=== PATIENT | female | born 1990 | race Caucasian/White ===

== ENCOUNTER 2016-07-13 18:43 | Emergency (ER) | payer OTHER ==
[2016-07-13 18:47] VITALS: BP 137/90; PULSE 130; TEMP 102.6; BMI 36.9
--- NOTE | 2016-07-13 19:36 | PDOC ---
History of Present Illness - General Chief Complaint: Cold Symptoms Stated Complaint: COLD SYMPTOMS Time Seen by Provider: 07/13/16 19:30 History Source: Patient, Parent(s) Exam Limitations: No Limitations - History of Present Illness Initial Comments: 07/13/16 19:31 Timing/Duration: reports: getting worse Severity: reports: mild, moderate Associated Symptoms: reports: fever/chills, nasal congestion Past History - Travel Traveled outside of the country in the last 30 days: No Close contact w/someone who was outside of country & ill: No - Past Medical History Allergies/Adverse Reactions: Allergies Allergy/AdvReac Type Severity Reaction Status Date / Time ibuprofen Allergy Intermediate hives/swell Verified 07/13/16 18:47 ing Home Medications: Ambulatory Orders NK [No Known Home Medication] 11/17/14 Other medical history: NONE - Immunization History Immunization Up to Date: Yes - Psycho/Social/Smoking Cessation Hx Anxiety: No Suicidal Ideation: No Smoking Status: No Smoking History: Never smoked Have you smoked in the past 12 months: No Number of Cigarettes Smoked Daily: 0 Hx Alcohol Use: No Drug/Substance Use Hx: No Substance Use Type: None Respiratory Specific PMHX - Complaint Specific PMHX Bronchitis: No Pneumonia: No Review of Systems - Review of Systems Able to Perform ROS?: Yes Is the patient limited Niuean proficient: Yes Constitutional: Yes: Symptoms Reported, See HPI, Fever, Malaise HEENTM: Yes: Symptoms Reported, See HPI, Throat Pain, Throat Swelling. No: Nose Congestion Respiratory: Yes: Symptoms reported, See HPI. No: Cough : No: Symptoms Reported Musculoskeletal: Yes: Symptoms Reported, See HPI, Muscle Weakness Integumentary: Yes: See HPI. No: Symptoms Reported, Bruising Neurological: Yes: Symptoms reported All Other Systems: Reviewed and Negative *Physical Exam - Vital Signs Last Vital Signs Temp Pulse Resp BP Pulse Ox 102.6 F H 130 H 20 137/90 100 07/13/16 18:44 07/13/16 18:44 07/13/16 18:44 07/13/16 18:44 07/13/16 18:44 - Physical Exam General Appearance: Yes: Nourished, Appropriately Dressed, Apparent Distress HEENT: positive: LOIS, Normal ENT Inspection, TMs Normal, Pharyngeal Erythema ( positive exudate, beefy red and enlarged tonsils, airway is patent), Tonsillar Erythema, Nasal Congestion, Rhinorrhea. negative: Pharynx Normal Neck: positive: Supple, Lymphadenopathy (R), Lymphadenopathy (L). negative: Tender Respiratory/Chest: positive: Lungs Clear, Normal Breath Sounds Cardiovascular: positive: Regular Rate Gastrointestinal/Abdominal: positive: Soft. 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 *DC/Admit/Observation/Transfer Diagnosis at time of Disposition: Pharyngitis, acute Qualifiers: Pharyngitis/tonsillitis etiology: unspecified etiology Qualified Code(s): J02.9 - Acute pharyngitis, unspecified - Discharge Dispostion Disposition: HOME Condition at time of disposition: Stable Admit: No - Referrals Referrals: Ailyn Ogden [Primary Care Provider] - - Patient Instructions Additional Instructions: Rest, drink lots of fluids: Teas, water, soups Eat cold things: Ice cream, ice pops, ice chips Saltwater gargles Steamy showers/seem to face break up mucus Avoid contact with others until fevers and pain resolved Lots of handwashing and good hygiene, this is contagious You have been treated with Bicillin LA 1.2 million units injection which is a one-time treatment for strep pharyngitis. You will not need to take any further antibiotics. Tylenol or Motrin for fever and pain Followup with private physician in one to 2 days as needed if not improving Return to emergency department for worsened symptoms, fevers, dehydration - Post Discharge Activity Work/School Note: Back to Work
[2016-07-13] MEDS ORDERED: PENICILLIN G BENZATHINE 1,200,000 UNIT/2 ML PFS IM ONE (19:46)
[2016-07-13] MEDS ORDERED: PENICILLIN G BENZATHINE 2,400,000 UNIT/4 ML PFS ONE (19:49)
== END 2016-07-13 20:40 | disposition home or self-care (01) ==
LOC: JERFT 18:43 → JER 18:43 → JERFT 20:40
DX: J02.9 Acute pharyngitis, unspecified (principal)
CPT/HCPCS: 87070; 87077; 87430; 99281-25

== ENCOUNTER 2016-09-03 16:50 | Emergency (ER) | payer OTHER ==
[2016-09-03 16:59] VITALS: BP 117/69; PULSE 100; TEMP 98; BMI 34.0
[2016-09-03] MEDS ORDERED: DEXAMETHASONE 4 MG TABLET (FP) PO STA (18:27)
--- NOTE | 2016-09-03 18:28 | PDOC ---
History of Present Illness - General Chief Complaint: Sore Throat Stated Complaint: COLD SYMPTOMS Time Seen by Provider: 09/03/16 17:40 History Source: Patient Exam Limitations: No Limitations - History of Present Illness Initial Comments: 09/03/16 18:24 26 yr female with sore throat for 3 days muffled voice. Pt states she gets strep often. no fever or chills. Past History - Past Medical History Allergies/Adverse Reactions: Allergies Allergy/AdvReac Type Severity Reaction Status Date / Time ibuprofen Allergy Intermediate hives/swell Verified 09/03/16 16:59 ing Home Medications: Ambulatory Orders Penicillin V Potassium [Pen Vee K -] 500 mg PO BID #21 tablet 09/03/16 Other medical history: denies - Immunization History Immunization Up to Date: Yes - Psycho/Social/Smoking Cessation Hx Anxiety: No Suicidal Ideation: No Smoking Status: No Smoking History: Never smoked Have you smoked in the past 12 months: No Number of Cigarettes Smoked Daily: 0 Information on smoking cessation initiated: No Hx Alcohol Use: No Drug/Substance Use Hx: No Substance Use Type: None *Physical Exam - Vital Signs Last Vital Signs Temp Pulse Resp BP Pulse Ox 98 F 100 H 18 117/69 100 09/03/16 16:57 09/03/16 16:57 09/03/16 16:57 09/03/16 16:57 09/03/16 16:57 - Physical Exam General Appearance: Yes: Nourished, Appropriately Dressed HEENT: positive: EOMI, LOIS, TMs Normal, Pharyngeal Erythema, Tonsillar Exudate , Tonsillar Erythema Neck: positive: Supple. negative: Tender Respiratory/Chest: positive: Lungs Clear, Normal Breath Sounds. negative: Chest Tender Cardiovascular: positive: Regular Rhythm, Regular Rate Gastrointestinal/Abdominal: positive: Normal Bowel Sounds, Soft Musculoskeletal: positive: Normal Inspection Extremity: positive: Normal Capillary Refill, Normal Inspection, Normal Range of Motion Integumentary: positive: Normal Color, Dry, Warm Neurologic: positive: Fully Oriented, Alert, Normal Mood/Affect, Normal Response , Motor Strength 5/5 Medical Decision Making - Medical Decision Making 09/03/16 21:52 cc: sore throat muffled voice history of strep no trismus, no difficulty speaking or swallowing will check for strep *DC/Admit/Observation/Transfer Diagnosis at time of Disposition: Acute streptococcal pharyngitis Pharyngitis, acute Qualifiers: Pharyngitis/tonsillitis etiology: unspecified etiology Qualified Code(s): J02.9 - Acute pharyngitis, unspecified - Discharge Dispostion Disposition: HOME Condition at time of disposition: Good - Prescriptions Prescriptions: Penicillin V Potassium [Pen Vee K -] 500 mg PO BID #21 tablet - Referrals Referrals: Ailyn Ogden [Primary Care Provider] - Agapito Rodas MD [Staff Physician] - - Patient Instructions Additional Instructions: follow with ENT for further care gargle with warm salt water 4-5 times a day tylenol for fever or pain you have been given a dose of steroid to help with swelling and pain
[2016-09-03] MEDS ORDERED: DEXAMETHASONE SOD PHOSPHATE 10 MG/1 ML VIAL ONE (18:30)
== END 2016-09-03 18:36 | disposition home or self-care (01) ==
LOC: JERFT 16:50
DX: J02.0 Streptococcal pharyngitis (principal); B95.0 Streptococcus, group A, as the cause of diseases classified elsewhere
CPT/HCPCS: 87070; 87430; 99281-25

== ENCOUNTER 2017-04-13 11:02 | Emergency (ER) | payer OTHER ==
[2017-04-13 11:11] VITALS: BP 136/81; PULSE 89; TEMP 97.9; BMI 39.9
[2017-04-13] MEDS ORDERED: MAG HYDROX/AL HYDROX/SIMETH 30 ML UNIT-DOSE CUP PO ONE (12:01)
[2017-04-13] MEDS ORDERED: FAMOTIDINE 20 MG/50 ML IVPB 50 ML IVPB ONE (12:01)
[2017-04-13] MEDS ORDERED: MAG HYDROX/AL HYDROX/SIMETH 30 ML UNIT-DOSE CUP ONE (12:09)
[2017-04-13 12:23] LABS: BASOPHIL 0.6 % (0-2.0); EOSINOPHIL 1.3 % (0-4.5); MCH 24.6 pg (25.7-33.7); MCHC 32.2 g/dl (32.0-36.0); MEAN CELL VOLUME 76.5 fl (80-96); NEUTROPHILS 75.1 % (42.8-82.8); PLATELET COUNT 346 K/MM3 (134-434); RDW 14.5 % (11.6-15.6)
--- NOTE | 2017-04-13 12:39 | PDOC ---
History of Present Illness - General Chief Complaint: Chest Pain Stated Complaint: CHEST PAIN Time Seen by Provider: 04/13/17 11:51 History Source: Patient Exam Limitations: No Limitations - History of Present Illness Travel History: No Initial Comments: 04/13/17 12:34 26 yr obese female with epigastric pain for 3 days worse in the morning , comes and goes more constant during the day. pt denies fever, positive nausea. Pt denies arm pain , states the pain radiates to her back , neg diarrhea. Pt has history of GERD after drinking ETOH pt denies drinking ETOH recently . Timing/Duration: reports: constant Quality: reports: fullness Abdominal Pain Onset Location: reports: epigastric Pain Radiation: reports: back Past History - Past Medical History Allergies/Adverse Reactions: Allergies Allergy/AdvReac Type Severity Reaction Status Date / Time ibuprofen Allergy Intermediate hives/swell Verified 04/13/17 11:07 ing Home Medications: Ambulatory Orders NK [No Known Home Medication] 04/13/17 Other medical history: obesity - Family Disease History Family Disease History: Other: Mother (gallbladder disease ) - Reproductive History LMP Normal: Yes Is Patient Now?: No - Immunization History Immunization Up to Date: Yes - Suicide/Smoking/Psychosocial Hx Smoking Status: No Smoking History: Never smoked Have you smoked in the past 12 months: No Number of Cigarettes Smoked Daily: 0 Hx Alcohol Use: No Drug/Substance Use Hx: No Substance Use Type: None Abd/GI Specific PMHX - Complaint Specific PMHX Colitis: No Diverticulitis: No Gall Bladder Disease: No GERD: Yes Hepatitis: No Irritable Bowel Synd (IBS): No Pancreatitis: No GI Ulcer Disease: No Review of Systems - Review of Systems Able to Perform ROS?: Yes Is the patient limited Slovak proficient: No Constitutional: No: Symptoms Reported HEENTM: No: Symptoms Reported Respiratory: No: Symptoms reported Cardiac (ROS): No: Symptoms Reported ABD/GI: Yes: Symptoms Reported, See HPI *Physical Exam - Vital Signs Last Vital Signs Temp Pulse Resp BP Pulse Ox 97.9 F 89 18 136/81 100 04/13/17 11:07 04/13/17 11:07 04/13/17 11:07 04/13/17 11:07 04/13/17 11:07 - Physical Exam General Appearance: Yes: Nourished, Appropriately Dressed, Obese HEENT: positive: EOMI, LOIS, Normal ENT Inspection, TMs Normal, Pharynx Normal Neck: positive: Supple. negative: Tender Respiratory/Chest: positive: Lungs Clear, Normal Breath Sounds. negative: Chest Tender Cardiovascular: positive: Regular Rhythm, Regular Rate Gastrointestinal/Abdominal: positive: Normal Bowel Sounds, Tender (epigastric area reproducable pain ), Soft Musculoskeletal: positive: Normal Inspection Extremity: positive: Normal Capillary Refill, Normal Inspection, Normal Range of Motion ED Treatment Course - LABORATORY CBC & Chemistry Diagram: 04/13/17 11:59 04/13/17 12:00 - ADDITIONAL ORDERS Additional order review: 04/13/17 11:59 RBC 5.02 MCV 76.5 L MCHC 32.2 RDW 14.5 MPV 8.0 Neutrophils % 75.1 Lymphocytes % 17.2 Monocytes % 5.8 Eosinophils % 1.3 Basophils % 0.6 - RADIOLOGY Radiology Studies Ordered: Category Date Time Status ABDOMEN US -LIMITED [US] Stat Ultrasound 04/13/17 11:59 Ordered - Medications Given in the ED: ED Medications Discontinued Medications Generic Name Dose Route Start Last Admin Trade Name Freq PRN Reason Stop Dose Admin Al Hydroxide/Mg Hydroxide 30 ml 04/13/17 12:01 04/13/17 12:09 Mylanta Oral Suspension - PO 04/13/17 12:02 30 ml ONCE ONE Administration Medical Decision Making - Medical Decision Making 04/13/17 12:38 cc: epigastric pain with nausea for 3 days worse in the AM will r/o gallbladder disease , family history of same 04/13/17 13:33 pt improved after maalox and zantac pt is asking to eat labs reviewed US reviewed and pt will follow up as outpatient with surgeon pt agrees with plan of care *DC/Admit/Observation/Transfer Diagnosis at time of Disposition: Gallbladder calculus without cholecystitis Qualifiers: Biliary obstruction: without biliary obstruction Qualified Code(s): K80.20 - Calculus of gallbladder without cholecystitis without obstruction; K80.20 - Calculus of gallbladder without cholecystitis without obstruction - Discharge Dispostion Disposition: HOME Condition at time of disposition: Improved - Referrals Referrals: Ailyn Ogden [Primary Care Provider] - Bipin Wilson MD [Staff Physician] - Bonny Reynoso MD [Staff Physician] - - Patient Instructions Additional Instructions: avoid spicy fatty foods, avoid chocoalte eat a bland diet as this can minimize your pain take maalox as needed(over the counter) and pepcid as directed RETURN if fever, chills vomiting severe pain follow with the surgeon next week call today or tomorrow to make appointment
[2017-04-13] MEDS ORDERED: RANITIDINE HCL 150 MG TABLET (FP) PO ONE (12:47)
[2017-04-13 12:49] LABS: ALBUMIN 3.5 g/dl (3.4-5.0); AMYLASE 38 U/L (25-115); ANION GAP 10 (8-16); CALCIUM 8.6 mg/dL (8.5-10.1); CO2 25 mmol/L (21-32); CREATININE 0.6 mg/dL (0.55-1.02); GLUCOSE,RANDOM 97 mg/dL (74-106); SGOT/AST 9 U/L (15-37)
[2017-04-13] MEDS ORDERED: RANITIDINE HCL 150 MG TABLET (FP) ONE (12:49)
[2017-04-13 12:51] LABS: ALK PHOS 93 U/L (45-117); BILIRUBIN,TOTAL 0.2 mg/dL (0.2-1.0); SGPT/ALT 23 U/L (12-78); TOT PROT 7.8 g/dl (6.4-8.2)
--- NOTE | 2017-04-16 09:10 | EKG ---
Test Reason : Blood Pressure : / mmHG Vent. Rate : 070 BPM Atrial Rate : 070 BPM P-R Int : 160 ms QRS Dur : 092 ms QT Int : 362 ms P-R-T Axes : 049 025 016 degrees QTc Int : 390 ms NORMAL SINUS RHYTHM NORMAL ECG WHEN COMPARED WITH ECG OF 21-AUG-2014 15:05, NO SIGNIFICANT CHANGE WAS FOUND Confirmed by MANGO SHELBY MD ([id number]) on 04/16/2017 9:09:46 AM Referred By: Confirmed By:MANGO SHELBY MD
== END 2017-04-13 13:39 | disposition home or self-care (01) ==
LOC: JERFT 11:02
DX: K80.20 Calculus of gallbladder without cholecystitis without obstruction (principal)
CPT/HCPCS: 36415; 76705-TC; 80053; 82150; 83690; 84703; 85025; 93005; 93010; 99281-25

== ENCOUNTER 2017-04-28 12:00 | Day surgery (SDC) | payer OTHER ==
[2017-04-28 12:48] VITALS: BMI 40.6
--- NOTE | 2017-04-28 14:04 | HP ---
History & Physical Update - History History: No Change - Physical Physical: No Change - Assessment Assessment: No Change - Plan Plan: No Change
[2017-04-28] MEDS ORDERED: SUCCINYLCHOLINE CHLORIDE 200 MG/10 ML VIAL ONE (14:25)
[2017-04-28] MEDS ORDERED: PROPOFOL 20 ML ONE (14:25)
[2017-04-28] MEDS ORDERED: ROCURONIUM BROMIDE 50 MG/5 ML VIAL ONE (14:25)
[2017-04-28] MEDS ORDERED: ceFAZolin SODIUM 1 GM VIAL IVPB ONE (14:45)
[2017-04-28] MEDS ORDERED: ceFAZolin SODIUM 1 GM VIAL ONE ×2 (14:53)
[2017-04-28] MEDS ORDERED: GLYCOPYRROLATE 0.2 MG/1 ML VIAL ONE ×2 (15:41)
[2017-04-28] MEDS ORDERED: NEOSTIGMINE METHYLSULFATE 0.5 MG/ML - 10 ML MDV ONE (15:41)
[2017-04-28] MEDS ORDERED: BUPIVACAINE HCL/PF 0.5% (5MG/ML) 10 ML VIAL IJ ONE (15:46)
--- NOTE | 2017-04-28 16:12 | OP ---
Operative Note - Note: Operative Date: 04/28/17 Pre-Operative Diagnosis: Cholelithiasis, cholecystitis, morbid obesity. Operation: Laparoscopic cholecystectomy , lysis of adhesions. Findings: Large gallbladder with multiple gallstones, extensive omental adhesions all around the gallbladder. Post-Operative Diagnosis: Other (Calculus of gallbladder with cholecystitis and extensive omental adhesions.) Surgeon: Bonny Reynoso Heel Seat Laster: Jennifer Bear Anesthesiologist/ASIC VERIFICATION ENGINEER: Agapito Leary Anesthesia: General Specimens Removed: Gallbladder with calculii. Estimated Blood Loss (mls): 15 Operative Report Dictated: Yes
[2017-04-28] MEDS ORDERED: ONDANSETRON 4 MG/2 ML VIAL IVPUSH PRN (16:18)
[2017-04-28] MEDS ORDERED: oxyCODONE HCL 5 MG TABLET PO PRN (16:18)
[2017-04-28] MEDS ORDERED: PROMETHAZINE HCL 25 MG/1 ML VIAL IVPUSH PRN (16:18)
--- NOTE | 2017-04-28 16:21 | SURG ---
Surgery Nurse Sane Note Nurse Sane: Jennifer Bear PA-C Date of Service: 04/28/17 Diagnosis: cholecystitis, cholelithiasis Procedure: Laprascopic cholecystectomy I was present for the entirety of the operative procedure. For further detail, please refer to operative report. Visit type - Case Type Case Type: Scheduled Admission - Emergency Emergency Visit: No - New patient This patient is new to me today: Yes Date on this admission: 04/28/17
[2017-04-28] MEDS ORDERED: LACTATED RINGERS SOLUTION 1,000 ML IV SCH (16:30)
[2017-04-28 18:15] VITALS: PULSE 90; TEMP 98.9
[2017-04-28 19:31] VITALS: BP 133/80
--- NOTE | 2017-04-28 20:52 | OP ---
DATE OF OPERATION: 04/28/2017 PREOPERATIVE DIAGNOSES: Calculus of the gallbladder with acute and chronic cholecystitis, morbid obesity. POSTOPERATIVE DIAGNOSES: Calculus of the gallbladder with cholecystitis, multiple extensive omental adhesions, and morbid obesity. OPERATIVE PROCEDURE: Laparoscopic cholecystectomy with lysis of adhesions. SURGEON: Claudio Reynoso MD DAIRY MANUFACTURING TECHNOLOGIST: EDIS aWre ANESTHESIA: General anesthesia. ANESTHESIOLOGIST: Agapito Leary MD OPERATIVE DESCRIPTION: This 26-year-old woman was admitted with severe abdominal pain, was found to have calculus of the gallbladder and cholecystitis. She was seen in the office and scheduled for laparoscopic cholecystectomy. She is also morbidly obese. Patient was given general anesthesia. Consent was obtained. Risks, benefits, and complications were discussed with the patient. Patient was brought to the operating room. General anesthesia was given. Abdomen was painted and draped. Timeout was called. An incision was made in the infraumbilical portion of the umbilicus, which was deepened inside the skin, subcutaneous fat, and the linea alba. A 10- to 12- mm laparoscopic trocar of the Naga type was introduced into the abdominal cavity. The abdomen was inflated with carbon dioxide at 6 L per minute with a maximum intra-abdominal pressure of 15 mmHg. A 5-mm laparoscopic camera was introduced into the abdominal cavity. Under direct vision, two 5-mm trocars were inserted in the right upper quadrant of the abdomen, one along the midclavicular line, another around the anterior axillary line. A third 5-mm trocar was inserted in the midline in the subxiphoid area. The fundus of the gallbladder was visualized and grasped with a grasper through the lateral 5-mm port site. The gallbladder was retracted cephalad and laterally. The gallbladder body and infundibulum were covered with extensive omental adhesions. These were carefully from the gallbladder with sharp and blunt dissection, as well as using electrocautery until the infundibulum of the gallbladder was visualized. Once the infundibulum of the gallbladder was visualized, this was grasped with another grasper. The infundibulum was retracted inferiorly and laterally. With sharp and blunt dissection, the cystic duct was isolated circumferentially and then divided between clips. The cystic artery was brought into view, and it was likewise divided between clips. The peritoneal reflection on either side of the gallbladder from the edge of the liver was incised, and the gallbladder dissected out of the gallbladder bed with sharp and blunt dissection all the way to the fundus of the gallbladder. The cholecystectomy was thus accomplished. The hemostasis was satisfactory and controlled during the procedure. An Endo Catch was then introduced through the umbilical port. The camera being switched to the subxiphoid port. The gallbladder was placed in the Endo Catch and retrieved out of the abdominal cavity. The gallbladder was large and had multiple large stones. Specimen was sent to Pathology. The gallbladder fossa was then thoroughly irrigated with normal saline, about 2-3 L. All fluid return was clear. There was no bleeding. The clips were intact. There was no bile leak. The instruments were then withdrawn under direct vision. The linea alba in the midline was approximated with interrupted [id number] 2-0 Vicryl sutures. The repair of the abdomen was adequate. There was no air leaking from the abdominal closure site. Then, 0.5% Marcaine was injected into the wound. Skin was approximated with buried, interrupted 4-0 Monocryl sutures. Dermabond was applied across the skin edges. The patient tolerated the procedure well. Estimated blood loss was less than 15 mL. Sponge count and instrument count was correct. Patient was extubated and sent to the recovery room in satisfactory and stable condition. Faye [id number]
--- NOTE | 2017-05-02 16:29 | PATH ---
Surgical Pathology Report Patient Name: EVA EMMANUEL [facility]. Rec. #: [id number] /Age/Gender: 1990 (Age: 26) / F Account: [id number] Location: [facility] SURGICAL Taken: 04/28/2017 Received: 05/01/2017 Reported: 05/02/2017 Physicians: Claudio Reynoso M.D. Specimen(s) Received GALLBLADDER Clinical History Cholelithiasis, cholecystitis Final Diagnosis GALLBLADDER, LAPAROSCOPIC CHOLECYSTECTOMY: CHOLESTEROLOSIS, MILD CHRONIC CHOLECYSTITIS AND CHOLELITHIASIS. Electronically Signed Clair Herndon M.D. Gross Description Received in formalin, labeled "gallbladder," is a 8.3 x 2.1 x 1.9 cm. gallbladder with a 0.2 cm. in length portion of cystic duct attached. The outer surface is méndez-henry and varies from smooth to shaggy. The lumen contains brown, sludgelike bile as well as abundant yellow, spherical choleliths ranging from 0.1-1.2 cm in greatest dimension. The mucosa is brown with gold cholesterol stippling and focally eroded. The wall of the gallbladder averages 0.1 cm. in thickness. Corn Lab Technician sections are submitted in one cassette. 05/01/201705/01/2017
== END 2017-04-28 19:00 | disposition home or self-care (01) ==
LOC: JASU-SURG 12:00
PROVIDERS: ATTEND Specialist
PROC: 0FT44ZZ Resection of Gallbladder, Percutaneous Endoscopic Approach (ICD-10-PCS; principal; 2017-04-28 12:00)
DX: K80.12 Calculus of gallbladder with acute and chronic cholecystitis without obstruction (principal); E66.01 Morbid (severe) obesity due to excess calories
CPT/HCPCS: 84703; 88304-TC; 94760

== ENCOUNTER 2017-10-23 20:18 | Emergency (ER) | payer OTHER ==
[2017-10-23 20:23] VITALS: BP 116/72; PULSE 87; TEMP 98.5; BMI 37.6
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
== END 2017-10-23 22:34 | disposition home or self-care (01) ==
LOC: JERFT 20:18
PROC: 2W3CX1Z Immobilization of Right Lower Arm using Splint (ICD-10-PCS; principal; 2017-10-23)
DX: S63.501A Unspecified sprain of right wrist, initial encounter (principal); W22.8XXA Striking against or struck by other objects, initial encounter; Y93.89 Activity, other specified; Y92.89 Other specified places as the place of occurrence of the external cause; Y99.8 Other external cause status
CPT/HCPCS: 73110-TC-RT-FY; 73130-TC-RT-FY; 99281-25

== ENCOUNTER 2018-12-05 20:15 | Emergency (ER) | payer BC, OTHER ==
[2018-12-05] MEDS ORDERED: ACETAMINOPHEN 160 MG/5 ML *Children Solution PO ONE (20:46)
[2018-12-05 20:48] VITALS: BP 124/74; PULSE 100; TEMP 98.2; BMI 36.4
--- NOTE | 2018-12-05 20:48 | PDOC ---
Rapid Medical Evaluation Chief Complaint: Sore Throat Time Seen by Provider: 12/05/18 20:40 Medical Evaluation: Allergies Allergy/AdvReac Type Severity Reaction Status Date / Time ibuprofen Allergy Intermediate hives/swell Verified 10/23/17 20:22 ing 12/05/18 20:42 I have performed a brief in-person evaluation of this patient. The patient presents with a chief complaint of: sorethroat pain x 5 days/ seen by PMD yesterday and started on Amoxicillin Pertinent physical exam findings: tonsils grossly enlarged / erythema I have ordered the following: rapid strep The patient will proceed to the ED for further evaluation. 12/05/18 20:48 Discharge Disposition - Diagnosis Pharyngitis - Referrals - Patient Instructions - Post Discharge Activity
[2018-12-05] MEDS ORDERED: DEXAMETHASONE LIQUID 0.5 MG/5 ML 240 ML BULK BOTTLE PO ONE (21:01)
[2018-12-05] MEDS ORDERED: DEXAMETHASONE SOD PHOSPHATE 10 MG/1 ML VIAL ONE (21:01)
--- NOTE | 2018-12-05 21:03 | PDOC ---
History of Present Illness - General Chief Complaint: Sore Throat Stated Complaint: SORE THROAT/FEVER Time Seen by Provider: 12/05/18 20:40 - History of Present Illness Initial Comments: 12/05/18 21:01 28-year-old female currently being treated for strep throat on amoxicillin presents for evaluation of sore throat and intermittent nausea over the last few days Past History - Past Medical History Allergies/Adverse Reactions: Allergies Allergy/AdvReac Type Severity Reaction Status Date / Time ibuprofen Allergy Intermediate hives/swell Verified 12/05/18 20:44 ing Home Medications: Ambulatory Orders NK [No Known Home Medication] 09/03/17 COPD: No - Surgical History Cholecystectomy: Yes - Family Disease History Family Disease History: Other: Mother (gallbladder disease ) - Immunization History Immunization Up to Date: Yes - Suicide/Smoking/Psychosocial Hx Smoking Status: No Smoking History: Never smoked Have you smoked in the past 12 months: No Number of Cigarettes Smoked Daily: 0 Information on smoking cessation initiated: No Hx Alcohol Use: No Drug/Substance Use Hx: No Substance Use Type: Marijuana Review of Systems - Review of Systems Constitutional: Yes: Fever HEENTM: Yes: Throat Pain, Difficulty Swallowing ABD/GI: Yes: Nausea *Physical Exam - Vital Signs Last Vital Signs Temp Pulse Resp BP Pulse Ox 98.2 F 100 H 17 124/74 100 12/05/18 20:42 12/05/18 20:42 12/05/18 20:42 12/05/18 20:42 12/05/18 20:42 - Physical Exam Comments: 12/05/18 21:01 HEAD: NC/AT EYES: Conjuntiva clear Ears: Canals and TM's normal NOSE: No d/c THROAT: Moist mucous membrances, oral pharanx erythemic with exudate, uvula midline NECK: Supple without adenopathy CARDIAC: S1 S2 LUNGS: CTA Full and Equal breath sounds ABDOMEN: Soft NT ND MS: Full ROM in all joints without edema NEUROLOGIC: No gross sensory or motor deficits, NVID SKIN: Normal color and temperature no lesions or rashes ED Treatment Course - Medications Given in the ED: ED Medications Discontinued Medications Generic Name Dose Route Start Last Admin Trade Name Freq PRN Reason Stop Dose Admin Acetaminophen 975 mg 12/05/18 20:46 12/05/18 20:56 Tylenol *Children Solution* - PO 12/05/18 20:47 975 mg ONCE ONE Administration Medical Decision Making - Medical Decision Making 12/05/18 21:01 I will Give the patient a dose of Decadron in the emergency room. She is currently on a course of amoxicillin. I will have her follow-up with ENT as she gets yearly strep infections *DC/Admit/Observation/Transfer Diagnosis at time of Disposition: Strep pharyngitis - Discharge Dispostion Disposition: HOME Condition at time of disposition: Stable Decision to Admit order: No - Referrals Referrals: Ailyn Ogden [Primary Care Provider] - Slava Díaz MD [Staff Physician] - - Patient Instructions Printed Discharge Instructions: Strep Throat, DI for Strep Throat Additional Instructions: Long-acting steroids were given in the emergency room should help with the pain over the next few days. Return to the emergency room for worsening symptoms. Follow-up with ear nose and throat doctor without fail in 1-2 days for further evaluation and treatment options. Warm salt water gargles will also help pain. Continue with Tylenol and Motrin as directed. - Post Discharge Activity
== END 2018-12-05 21:03 | disposition home or self-care (01) ==
LOC: JERFT 20:15
DX: J02.0 Streptococcal pharyngitis (principal)
CPT/HCPCS: 99281-25

== ENCOUNTER 2020-09-21 16:18 | Emergency (ER) | payer BC ==
[2020-09-21 16:29] VITALS: BP 143/87; PULSE 66; TEMP 98; BMI 37.8
[2020-09-21] MEDS ORDERED: morphine CARPU-JECT 4 MG/1 ML DISP.SYRIN IVPUSH ONE (16:52)
[2020-09-21] MEDS ORDERED: SODIUM CHLORIDE 1,000 ML IV STA (16:53)
[2020-09-21] MEDS ORDERED: ONDANSETRON 4 MG/2 ML VIAL IVPUSH ONE (16:55)
[2020-09-21] MEDS ORDERED: ONDANSETRON 4 MG/2 ML VIAL ONE (17:14)
[2020-09-21] MEDS ORDERED: morphine SULFATE 4 MG/ML VIAL ONE (17:14)
[2020-09-21 17:45] LABS: URINE APPEARANCE CLEAR; URINE BILIRUBIN NEGATIVE (NEGATIVE); URINE COLOR YELLOW; URINE KETONE NEGATIVE (NEGATIVE)
[2020-09-21 17:46] LABS: ALBUMIN 3.9 g/dl (3.4-5.0); BILIRUBIN,TOTAL 0.4 mg/dl (0.2-1); CREATININE 0.6 mg/dl (0.55-1.3); POTASSIUM 3.5 mmol/L (3.5-5.1); TOT PROT 7.5 g/dl (6.4-8.2)
[2020-09-21 17:46] LABS: PH,URINE 5.5 (4.5-8); URINE GLUCOSE (UA) NEGATIVE (NEGATIVE); URINE LEUK ESTERASE NEGATIVE (NEGATIVE); URINE NITRITE NEGATIVE (NEGATIVE); URINE PROTEIN NEGATIVE (NEGATIVE); URINE UROBILINOGEN 0.2 (0.2-1.0)
[2020-09-21 17:51] LABS: BASO % 4.3 % (0-2.0); EOS % 1.6 % (0-4.5); HEMATOCRIT 39.5 % (32.4-45.2); HEMOGLOBIN 12.9 GM/dl (10.7-15.3); LYMPH % 12.2 % (8-40); MCH 26.8 pg (25.7-33.7); MCHC 32.7 g/dl (32.0-36.0); MEAN CELL VOLUME 81.9 fl (80-96); MEAN PLT VOLUME 8.6 fl (7.5-11.1); MONO % 7.5 % (3.8-10.2); NEUT % 74.4 % (42.8-82.8); PLATELET COUNT 296 K/MM3 (134-434); RBC 4.82 M/mm3 (3.60-5.2); RDW 13.3 % (11.6-15.6); WHITE BLOOD COUNT 11.2 K/mm3 (4.0-10.8)
[2020-09-21] MEDS ORDERED: ACETAMINOPHEN 1000 MG/100 ML VIAL (NON FORMULARY) IVPB ONE (18:24)
[2020-09-21] MEDS ORDERED: TAMSULOSIN HCL 0.4 MG CAP PO ONE (18:48)
[2020-09-21] MEDS ORDERED: TAMSULOSIN HCL 0.4 MG CAP ONE (19:13)
[2020-09-21] MEDS ORDERED: ACETAMINOPHEN INJECTION 100 ML IVPB ONE (19:13)
== END 2020-09-21 20:18 | disposition home or self-care (01) ==
LOC: FER 16:18
PROC: 3E0337Z Introduction of Electrolytic and Water Balance Substance into Peripheral Vein, Percutaneous Approach (ICD-10-PCS; principal; 2020-09-21)
PROC: 3E033GC Introduction of Other Therapeutic Substance into Peripheral Vein, Percutaneous Approach (ICD-10-PCS; principal; 2020-09-21)
DX: R10.9 Unspecified abdominal pain (principal)
CPT/HCPCS: 36415; 74176-TC; 80053; 81003; 81025; 83690; 85025; 87086; 99285-25; J0131

== ENCOUNTER 2021-04-27 12:37 | Emergency (ER) | payer OTHER, BC ==
[2021-04-27 13:04] VITALS: BP 130/70; PULSE 61; TEMP 97.9; BMI 42.8
[2021-04-27] MEDS ORDERED: ACETAMINOPHEN 500 MG TABLET (FP) PO ONE (13:34)
[2021-04-27] MEDS ORDERED: ACETAMINOPHEN 500 MG TABLET (FP) ONE (13:35)
== END 2021-04-27 14:05 | disposition home or self-care (01) ==
LOC: JERFT 12:37 → JER 12:37 → JERFT 14:05
DX: S93.401A Sprain of unspecified ligament of right ankle, initial encounter (principal); W01.10XA Fall on same level from slipping, tripping and stumbling with subsequent striking against unspecified object, initial encounter; Y92.9 Unspecified place or not applicable
CPT/HCPCS: 73610-TC-RT-FY; 73630-TC-RT-FY; 99284-25

== ENCOUNTER 2024-04-09 07:54 | Inpatient (IN) | payer BC ==
[2024-04-09 09:10] LABS: INR 0.9 (0.83-1.09); PROTHROMBIN TIME (PATIENT) 10.2 SEC (9.7-13.0)
[2024-04-09] MEDS: DINOPROSTONE 10 MG VAGINAL SUPPOSITORY VG ONE (09:10)
[2024-04-09 09:12] LABS: BASO % 0.2 % (0-2.0); EOS % 0.7 % (0-4.5); HEMATOCRIT 34.1 % (32.4-45.2); HEMOGLOBIN 11.2 GM/dL (10.7-15.3); LYMPH % 16.7 % (8-40); MCH 26.4 pg (25.7-33.7); MCHC 32.9 g/dl (32.0-36.0); MEAN CELL VOLUME 80.3 fl (80-96); MONO % 7.2 % (3.8-10.2); NEUT % 75.2 % (42.8-82.8); PLATELET COUNT 295 10^3/uL (134-434); RBC 4.25 M/mm3 (3.60-5.2); RDW 14.5 % (11.6-15.6); WHITE BLOOD COUNT 10.6 K/mm3 (4.0-10.0)
[2024-04-09 09:13] LABS: ACTIVATED PTT 25.2 SECONDS (25.2-36.5)
[2024-04-09 09:16] LABS: CHLORIDE 111 mmol/L (98-107); POTASSIUM 3.4 mmol/L (3.5-5.1); SODIUM 139 mmol/L (136-145)
[2024-04-09 09:17] LABS: CALCIUM 8.7 mg/dL (8.5-10.1)
[2024-04-09 09:18] LABS: ANION GAP 7 mmol/L (4-13); BLOOD UREA NITROGEN 8.1 mg/dL (7-18); CO2 21 mmol/L (21-32); GLUCOSE,RANDOM 160 mg/dL (74-106)
[2024-04-09 09:21] LABS: CREATININE 0.7 mg/dL (0.55-1.3)
[2024-04-09 11:11] VITALS: BMI 36.7
[2024-04-09 12:38] LABS: HIV INTERPRETATION NEGATIVE (NEGATIVE)
[2024-04-09] MEDS ORDERED: INSULIN (NOVOLOG) ASPART 100 UNITS/ML 10ML VIAL ONE (18:26)
[2024-04-09] MEDS: INSULIN ASPART SLIDING SCALE (NOVOLOG) 1 VIAL SQ SCH (18:32)
[2024-04-09] MEDS: OXYTOCIN 20 UNITS in 0.9% NS 20 UNIT/1,000 ML INFUS.BAG IV SCH (22:30)
[2024-04-10] MEDS ORDERED: INSULIN (NOVOLOG) ASPART 100 UNITS/ML 10ML VIAL ONE (00:35)
[2024-04-10] MEDS: MISOPROSTOL 25 MCG TABLET (COMPOUNDED BY PHARMACY) PV ONE (01:38)
[2024-04-10] MEDS ORDERED: OXYTOCIN 30 UNITS in 0.9% NS 30 UNIT/500 ML INFUS.BAG IVPB ONE (05:01)
[2024-04-10] MEDS: OXYTOCIN 30 UNITS in 0.9% NS 30 UNIT/500 ML INFUS.BAG IVPB SCH (05:30)
[2024-04-10] MEDS: ELECTROLYTE-148 SOLN 1,000 ML IV SCH (05:30)
[2024-04-10] MEDS: MISOPROSTOL 25 MCG TABLET (COMPOUNDED BY PHARMACY) PV SCH (07:06)
[2024-04-10] MEDS ORDERED: FENTANYL/BUPIVACAINE/NS/PF - PCEA - 50 ML DISP.SYRIN EP ONE ×4 (07:07→20:25)
[2024-04-10] MEDS: FENTANYL/BUPIVACAINE/NS/PF - PCEA - 50 ML DISP.SYRIN EP SCH (07:40)
[2024-04-10] MEDS ORDERED: NALOXONE HCL 0.4 MG/ML VIAL IVPUSH PRN (08:01)
[2024-04-10] MEDS: DEXTROSE 5%-LACTATED RINGERS 1,000 ML IV SCH (12:00)
[2024-04-10] MEDS: AMPICILLIN - 2 GM in SODIUM CHLORIDE 100 ML IVPB ONE (12:40)
[2024-04-10] MEDS ORDERED: AMPICILLIN SODIUM 2 GM VIAL ONE (12:44)
[2024-04-10] MEDS ORDERED: SODIUM CHLORIDE 100 ML IVPB ONE (12:45)
[2024-04-10] MEDS ORDERED: AMPICILLIN SODIUM 1 GM VIAL ONE ×2 (15:41→19:59)
[2024-04-10] MEDS: AMPICILLIN - 1 GM in SODIUM CHLORIDE 100 ML IVPB SCH (16:00)
[2024-04-10] MEDS ORDERED: LIDOCAINE HCL 1% PRESERVATIVE FREE - 30ML VIAL ONE (22:06)
[2024-04-10] MEDS ORDERED: OXYTOCIN 20 UNITS in 0.9% NS 20 UNIT/1,000 ML INFUS.BAG IV ONE (22:06)
[2024-04-10] MEDS ORDERED: oxyCODONE HCL 5 MG TABLET PO PRN (22:41)
[2024-04-10] MEDS ORDERED: IBUPROFEN 600 MG TABLET (FP) PO PRN (22:41)
[2024-04-10] MEDS ORDERED: BISACODYL 10 MG SUPP.RECT RC PRN (22:41)
[2024-04-10] MEDS ORDERED: METHYLERGONOVINE MALEATE 0.2 MG/1 ML AMP IM PRN (22:41)
[2024-04-10] MEDS ORDERED: WITCH HAZEL 50% (TUCKS) 40 PAD/JAR PAD TP PRN (22:41)
[2024-04-10] MEDS ORDERED: BENZOCAINE 20% 57 GM BOTTLE TP PRN (22:41)
[2024-04-10] MEDS ORDERED: BENZOCAINE 28 GM HEMORRHOIDAL OINTMENT TP PRN (22:41)
[2024-04-11 07:22] LABS: BASO % 0.3 % (0-2.0); EOS % 0.1 % (0-4.5); HEMATOCRIT 30.9 % (32.4-45.2); HEMOGLOBIN 10.2 GM/dL (10.7-15.3); LYMPH % 12.2 % (8-40); MCH 26.2 pg (25.7-33.7); MCHC 32.8 g/dl (32.0-36.0); MEAN CELL VOLUME 79.8 fl (80-96); MEAN PLT VOLUME 8.6 fl (7.5-11.1); MONO % 9.9 % (3.8-10.2); NEUT % 77.5 % (42.8-82.8); PLATELET COUNT 244 10^3/uL (134-434); RBC 3.88 M/mm3 (3.60-5.2); RDW 14.6 % (11.6-15.6); WHITE BLOOD COUNT 16.2 K/mm3 (4.0-10.0)
[2024-04-11] MEDS: ACETAMINOPHEN 325 MG TABLET (FP) PO PRN (09:34)
[2024-04-11] MEDS: PRENATAL VITAMINS W/ FOLIC ACID TABLET (FP) PO SCH (09:34)
[2024-04-11 18:31] VITALS: RESP 18
[2024-04-11] MEDS ORDERED: SENNOSIDES/DOCUSATE COMBO (SENNA PLUS) TABLET (UD) PO PRN (22:00)
[2024-04-12 09:08] VITALS: BP 137/81; PULSE 81; TEMP 98.6
[2024-04-12 12:48] LABS: POC NITRAZINE POS
== END 2024-04-12 14:00 | disposition home or self-care (01) | DRG 807 ==
LOC: JLDR 07:54 → J3W 04-11 00:51
PROVIDERS: ADMIT Obstetrics & Gynecology; ATTEND Obstetrics & Gynecology
PROC: 3E0P7VZ Introduction of Hormone into Female Reproductive, Via Natural or Artificial Opening (ICD-10-PCS; 2024-04-09)
PROC: 10E0XZZ Delivery of Products of Conception, External Approach (ICD-10-PCS; principal; 2024-04-10)
PROC: 0HQ9XZZ Repair Perineum Skin, External Approach (ICD-10-PCS; 2024-04-10)
PROC: 0W8NXZZ Division of Female Perineum, External Approach (ICD-10-PCS; 2024-04-10)
DX: O24.424 Gestational diabetes mellitus in childbirth, insulin controlled (principal); Z3A.39 39 weeks gestation of pregnancy; Z37.0 Single live birth; O99.214 Obesity complicating childbirth; O70.0 First degree perineal laceration during delivery; O99.824 Streptococcus B carrier state complicating childbirth
CPT/HCPCS: 36415; 59409; 80048; 82962; 83986-QW; 85025; 85610; 85730; 86780; 86850; 86900; 86901; 87389